=== PATIENT | female | born 1935 | race Caucasian/White ===

== ENCOUNTER 2019-04-03 15:14 | Emergency (ER) | payer MEDICARE, MEDICAID ==
[~2019-04-03] VITALS: Ht 147.3 cm; Wt 52.2 kg
[2019-04-03 15:14] VITALS: BP 128/75
[~2019-04-03 15:14] MED LIST: ALPR2TAB2 PO; ESOM40CA PO; FERR325T28 PO; FLUO20CA36 PO; ROSU5TAB PO; SOLI5TAB2 PO
== END 2019-04-03 17:32 | disposition home or self-care (01) ==
LOC: ER 15:16
DX: S69.91XA Unspecified injury of right wrist, hand and finger(s), initial encounter (principal); K21.9 Gastro-esophageal reflux disease without esophagitis; Z98.890 Other specified postprocedural states; Z88.0 Allergy status to penicillin; W18.39XA Other fall on same level, initial encounter; Y93.89 Activity, other specified; Y92.89 Other specified places as the place of occurrence of the external cause; Y99.8 Other external cause status
CPT/HCPCS: 73110

== ENCOUNTER 2020-01-20 09:55 | Outpatient (CLI) | payer MEDICARE, MEDICAID | END 2020-01-20 23:59 | disposition home or self-care (01) | LOC: MSC 09:55 | PROVIDERS: ATTEND Anesthesiology | DX: M54.16 Radiculopathy, lumbar region (principal); M62.830 Muscle spasm of back; G89.4 Chronic pain syndrome; M79.669 Pain in unspecified lower leg; G47.00 Insomnia, unspecified; F13.20 Sedative, hypnotic or anxiolytic dependence, uncomplicated; Z79.899 Other long term (current) drug therapy ==

== ENCOUNTER → 2020-02-17 | Outpatient (CLI) | payer MEDICARE, MEDICAID | END | disposition home or self-care (01) | LOC: MSC 10:45 | PROVIDERS: ATTEND Anesthesiology | DX: M54.16 Radiculopathy, lumbar region (principal); M62.830 Muscle spasm of back; G89.4 Chronic pain syndrome; M79.662 Pain in left lower leg; M79.661 Pain in right lower leg; G47.00 Insomnia, unspecified; F13.20 Sedative, hypnotic or anxiolytic dependence, uncomplicated ==

== ENCOUNTER → 2020-03-30 | Outpatient (CLI) | payer MEDICARE, MEDICAID | END | disposition home or self-care (01) | LOC: MSC 10:56 | PROVIDERS: ATTEND Anesthesiology | DX: M54.16 Radiculopathy, lumbar region (principal); M62.830 Muscle spasm of back; M40.209 Unspecified kyphosis, site unspecified; G89.4 Chronic pain syndrome; M79.669 Pain in unspecified lower leg; G47.00 Insomnia, unspecified; F13.20 Sedative, hypnotic or anxiolytic dependence, uncomplicated ==

== ENCOUNTER 2020-04-07 10:20 | Outpatient (CLI) | payer MEDICARE, MEDICAID | END 2020-04-07 23:59 | disposition home or self-care (01) | LOC: MSC 10:20 | PROVIDERS: ATTEND Internal Medicine | DX: M19.90 Unspecified osteoarthritis, unspecified site (principal); R51.9 Headache, unspecified; R32 Unspecified urinary incontinence; F41.9 Anxiety disorder, unspecified; F32.9 Major depressive disorder, single episode, unspecified; R42 Dizziness and giddiness; R00.1 Bradycardia, unspecified; M81.0 Age-related osteoporosis without current pathological fracture; E04.9 Nontoxic goiter, unspecified; N20.0 Calculus of kidney; E78.5 Hyperlipidemia, unspecified; F11.20 Opioid dependence, uncomplicated; Z79.899 Other long term (current) drug therapy ==

== ENCOUNTER → 2020-04-27 | Outpatient (CLI) | payer MEDICARE, MEDICAID | END | disposition home or self-care (01) | LOC: MSC 10:00 | PROVIDERS: ATTEND Anesthesiology | DX: M62.830 Muscle spasm of back (principal); M54.16 Radiculopathy, lumbar region; G89.4 Chronic pain syndrome; M79.669 Pain in unspecified lower leg; G47.00 Insomnia, unspecified; F13.20 Sedative, hypnotic or anxiolytic dependence, uncomplicated ==

== ENCOUNTER 2020-05-14 13:20 | Outpatient (CLI) | payer MEDICARE, MEDICAID | END 2020-05-14 23:59 | disposition home or self-care (01) | LOC: MSC 13:20 | PROVIDERS: ATTEND Internal Medicine | DX: M19.90 Unspecified osteoarthritis, unspecified site (principal); F32.9 Major depressive disorder, single episode, unspecified; R51.9 Headache, unspecified; R00.1 Bradycardia, unspecified; R32 Unspecified urinary incontinence; N20.0 Calculus of kidney; M81.0 Age-related osteoporosis without current pathological fracture; F11.20 Opioid dependence, uncomplicated; E04.9 Nontoxic goiter, unspecified; E78.5 Hyperlipidemia, unspecified; F41.9 Anxiety disorder, unspecified; R42 Dizziness and giddiness | CPT/HCPCS: 71045; 73030 ×2; G0463 ==

== ENCOUNTER 2020-05-19 12:56 | Outpatient (CLI) | payer MEDICARE, MEDICAID | END 2020-05-19 23:59 | disposition home or self-care (01) | LOC: MRI 12:56 | PROVIDERS: ATTEND Internal Medicine | DX: Z75.3 Unavailability and inaccessibility of health-care facilities (principal) ==

== ENCOUNTER 2020-06-22 10:30 | Outpatient (CLI) | payer MEDICARE, MEDICAID | END 2020-06-22 23:59 | disposition home or self-care (01) | LOC: MSC 10:30 | PROVIDERS: ATTEND Anesthesiology | DX: M54.16 Radiculopathy, lumbar region (principal); M62.830 Muscle spasm of back; G89.4 Chronic pain syndrome; M79.669 Pain in unspecified lower leg; G47.00 Insomnia, unspecified; F13.20 Sedative, hypnotic or anxiolytic dependence, uncomplicated ==

== ENCOUNTER 2020-07-06 10:04 | Outpatient (CLI) | payer MEDICARE, MEDICAID | END 2020-07-06 23:59 | disposition home or self-care (01) | LOC: MSC 10:04 | PROVIDERS: ATTEND Internal Medicine | DX: M81.0 Age-related osteoporosis without current pathological fracture (principal) | CPT/HCPCS: J0897 ×2; 96372 ==

== ENCOUNTER 2020-08-03 10:38 | Outpatient (CLI) | payer MEDICARE, MEDICAID ==
[2020-08-19] MEDS ORDERED: TOPI50TA24 PO (10:55)
[2020-08-19] MEDS ORDERED: LANS30CA56 PO (10:55)
[2020-08-19] MEDS ORDERED: ALPR1TAB7 PO (10:55)
[2020-08-19] MEDS ORDERED: TROS20TA3 PO (10:55)
[2020-08-19] MEDS ORDERED: ROSU20TA32 PO (10:55)
[2020-08-19] MEDS ORDERED: MIRT7.5T10 PO (10:55)
[2020-08-19] MEDS ORDERED: AMIT10TA6 PO (10:55)
[2020-08-19] MEDS ORDERED: GABA-532 PO (10:55)
== END 2020-08-03 23:59 | disposition home or self-care (01) ==
LOC: MSC 10:38
PROVIDERS: ATTEND Anesthesiology
DX: M75.01 Adhesive capsulitis of right shoulder (principal); M19.011 Primary osteoarthritis, right shoulder; M75.02 Adhesive capsulitis of left shoulder; M19.012 Primary osteoarthritis, left shoulder; G89.4 Chronic pain syndrome; M54.16 Radiculopathy, lumbar region; M62.830 Muscle spasm of back; F13.20 Sedative, hypnotic or anxiolytic dependence, uncomplicated; M17.0 Bilateral primary osteoarthritis of knee
CPT/HCPCS: 96372; Q4177

== ENCOUNTER 2020-08-16 13:06 | Outpatient (CLI) | payer MEDICARE, MEDICAID ==
[2020-08-16 14:58] LABS: BASOPHILS % (AUTO) 0.4 % (0.0-2.0); EOSINOPHILS % (AUTO) 2.8 % (0.0-6.0); HEMATOCRIT 39 % (33-45); HEMOGLOBIN 12.5 g/dL (11.5-14.8); LYMPHOCYTES # (AUTO) 2.3 /CMM (0.8-4.8); LYMPHOCYTES % (AUTO) 30.9 % (20.0-44.0); MEAN CORPUSCULAR HGB CONC 32 g/dl (31.0-36.0); MEAN CORPUSCULAR VOLUME 85 fL (82-100); MONOCYTES # (AUTO) 0.7 /CMM (0.1-1.30); MONOCYTES % (AUTO) 9.1 % (2.0-12.0); NEUTROPHILS # (AUTO) 4.2 /CMM (1.8-8.9); NEUTROPHILS % (AUTO) 56.8 % (43.0-81.0); PLATELET COUNT (AUTO) 245 /CMM (150-450); RED BLOOD CELL COUNT(AUTO) 4.57 MIL/uL (4.0-5.2); WHITE BLOOD COUNT (AUTO) 7.4 K/uL (4.3-11.0)
[2020-08-16 15:19] LABS: ALBUMIN 3.4 g/dL (3.4-5.0); BILIRUBIN,TOTAL 0.5 mg/dL (0.2-1.0); CREATININE 0.7 mg/dL (0.6-1.3); MAGNESIUM 2.1 mg/dL (1.8-2.4); PHOSPHORUS 3.1 mg/dL (2.5-4.9); POTASSIUM 3.2 mmol/L (3.5-5.1)
[2020-08-16 15:21] LABS: BILIRUBIN,URINE NEGATIVE (NEGATIVE); COLOR,URINE YELLOW (YELLOW); LEUKOCYTE ESTERASE ,URINE MODERATE (NEGATIVE); NITRITE, URINE NEGATIVE (NEGATIVE); PH,URINE 5.5 (5.0-8.0); PROTEIN,URINE NEGATIVE (NEGATIVE); UGLUCOSE NEGATIVE (NEGATIVE); UROBILINOGEN,URINE 0.2 EU/dL (0.2)
[2020-08-16 15:42] LABS: BACTERIA,URINE RARE /HPF (None Seen); SQUAMOUS EPITHELIAL CELL,UR 0-2 /HPF (None Seen)
[2020-08-16 16:02] LABS: THYROID STIMULATING HORMONE 0.364 uIU/mL (0.358-3.74)
[2020-08-19] MEDS ORDERED: LANS30CA56 PO (10:55)
[2020-08-19] MEDS ORDERED: TROS20TA3 PO (10:55)
[2020-08-19] MEDS ORDERED: ROSU20TA32 PO (10:55)
[2020-08-19] MEDS ORDERED: MIRT7.5T10 PO (10:55)
[2020-08-19] MEDS ORDERED: ALPR1TAB7 PO (10:55)
[2020-08-19] MEDS ORDERED: TOPI50TA24 PO (10:55)
[2020-08-19] MEDS ORDERED: GABA-532 PO (10:55)
[2020-08-19] MEDS ORDERED: AMIT10TA6 PO (10:55)
== END 2020-08-16 23:49 | disposition home or self-care (01) ==
LOC: MSC 13:06
PROVIDERS: ATTEND Internal Medicine
DX: R10.13 Epigastric pain (principal); R32 Unspecified urinary incontinence; M19.90 Unspecified osteoarthritis, unspecified site; F32.9 Major depressive disorder, single episode, unspecified; R51.9 Headache, unspecified; R00.1 Bradycardia, unspecified; F41.9 Anxiety disorder, unspecified; Z87.442 Personal history of urinary calculi; M81.0 Age-related osteoporosis without current pathological fracture; E78.5 Hyperlipidemia, unspecified; F11.20 Opioid dependence, uncomplicated; Z79.899 Other long term (current) drug therapy; Z88.6 Allergy status to analgesic agent; Z88.5 Allergy status to narcotic agent
CPT/HCPCS: 36415; 80053; 80061; 81001; 82553; 83735; 84100; 84443; 85025; 87086; G0463

== ENCOUNTER 2020-08-18 12:35 | Outpatient (CLI) | payer MEDICARE, MEDICAID ==
[2020-08-19] MEDS ORDERED: AMIT10TA6 PO (10:55)
[2020-08-19] MEDS ORDERED: TROS20TA3 PO (10:55)
[2020-08-19] MEDS ORDERED: GABA-532 PO (10:55)
[2020-08-19] MEDS ORDERED: MIRT7.5T10 PO (10:55)
[2020-08-19] MEDS ORDERED: ALPR1TAB7 PO (10:55)
[2020-08-19] MEDS ORDERED: LANS30CA56 PO (10:55)
[2020-08-19] MEDS ORDERED: TOPI50TA24 PO (10:55)
[2020-08-19] MEDS ORDERED: ROSU20TA32 PO (10:55)
== END 2020-08-18 23:59 | disposition home or self-care (01) ==
LOC: RAD 12:35
PROVIDERS: ATTEND Internal Medicine
DX: K80.20 Calculus of gallbladder without cholecystitis without obstruction (principal); K44.9 Diaphragmatic hernia without obstruction or gangrene; I51.7 Cardiomegaly; K76.89 Other specified diseases of liver; K86.2 Cyst of pancreas

== ENCOUNTER 2020-08-23 15:00 | Outpatient (CLI) | payer MEDICARE, OTHER ==
[~2020-08-23 15:00] MED LIST changes: +ALPR1TAB7 PO; -ALPR2TAB2 PO; +AMIT10TA6 PO; +GABA-532 PO; +LANS30CA56 PO; +MIRT7.5T10 PO; +ROSU20TA32 PO; -ROSU5TAB PO; -SOLI5TAB2 PO; +TOPI50TA24 PO; +TROS20TA3 PO
== END 2020-08-23 23:59 | disposition home or self-care (01) ==
LOC: MSC 15:00
PROVIDERS: ATTEND Internal Medicine
DX: Z09 Encounter for follow-up examination after completed treatment for conditions other than malignant neoplasm (principal); R10.9 Unspecified abdominal pain; M19.90 Unspecified osteoarthritis, unspecified site; F32.9 Major depressive disorder, single episode, unspecified; R51.9 Headache, unspecified; R00.1 Bradycardia, unspecified; R32 Unspecified urinary incontinence; Z87.442 Personal history of urinary calculi; F41.9 Anxiety disorder, unspecified; M81.0 Age-related osteoporosis without current pathological fracture; F11.20 Opioid dependence, uncomplicated; E04.9 Nontoxic goiter, unspecified; E78.5 Hyperlipidemia, unspecified; R42 Dizziness and giddiness; Z79.899 Other long term (current) drug therapy; Z88.6 Allergy status to analgesic agent; Z88.5 Allergy status to narcotic agent

== ENCOUNTER 2020-08-24 10:24 | Outpatient (CLI) | payer MEDICARE, OTHER ==
[2020-08-24 10:47] LABS: BASOPHILS % (AUTO) 0.4 % (0.0-2.0); EOSINOPHILS % (AUTO) 1.6 % (0.0-6.0); HEMATOCRIT 36 % (33-45); HEMOGLOBIN 11.6 g/dL (11.5-14.8); LYMPHOCYTES % (AUTO) 17.2 % (20.0-44.0); MEAN CORPUSCULAR HGB CONC 32 g/dl (31.0-36.0); MEAN CORPUSCULAR VOLUME 83 fL (82-100); MONOCYTES # (AUTO) 1.2 /CMM (0.1-1.30); NEUTROPHILS # (AUTO) 8.3 /CMM (1.8-8.9); NEUTROPHILS % (AUTO) 70.8 % (43.0-81.0); PLATELET COUNT (AUTO) 595 /CMM (150-450); RED BLOOD CELL COUNT(AUTO) 4.34 MIL/uL (4.0-5.2); WHITE BLOOD COUNT (AUTO) 11.7 K/uL (4.3-11.0)
[2020-08-24 11:41] LABS: ALBUMIN 2.8 g/dL (3.4-5.0); BILIRUBIN,TOTAL 0.4 mg/dL (0.2-1.0); CALCIUM, SERUM 9.2 mg/dL (8.5-10.1); CREATININE 0.6 mg/dL (0.6-1.3); MAGNESIUM 1.8 mg/dL (1.8-2.4); PHOSPHORUS 2.8 mg/dL (2.5-4.9); POTASSIUM 2.9 mmol/L (3.5-5.1)
== END 2020-08-24 23:59 | disposition home or self-care (01) ==
LOC: LAB 10:24
PROVIDERS: ATTEND Internal Medicine
DX: K81.9 Cholecystitis, unspecified (principal)
CPT/HCPCS: 36415; 80053-TC; 83735-TC; 84100-TC; 85025-TC; 85730-TC

== ENCOUNTER 2020-08-24 10:30 | Outpatient (CLI) | payer MEDICARE, OTHER ==
[~2020-08-24 10:30] MED LIST changes: +ALPR2TAB2 PO; +ROSU5TAB PO; +SOLI5TAB2 PO
== END 2020-08-24 23:59 | disposition home or self-care (01) ==
LOC: MSC 10:30
PROVIDERS: ATTEND Anesthesiology
DX: M75.02 Adhesive capsulitis of left shoulder (principal); M19.012 Primary osteoarthritis, left shoulder; G89.4 Chronic pain syndrome; G47.00 Insomnia, unspecified; F13.20 Sedative, hypnotic or anxiolytic dependence, uncomplicated
CPT/HCPCS: 96372; Q4177

== ENCOUNTER 2020-09-03 13:05 | Outpatient (CLI) | payer MEDICARE, OTHER ==
[~2020-09-03 13:05] MED LIST changes: -ALPR2TAB2 PO; -ROSU5TAB PO; -SOLI5TAB2 PO
[2020-09-03 14:06] LABS: BASOPHILS % (AUTO) 0.6 % (0.0-2.0); EOSINOPHILS % (AUTO) 2.2 % (0.0-6.0); HEMATOCRIT 37 % (33-45); HEMOGLOBIN 11.9 g/dL (11.5-14.8); LYMPHOCYTES # (AUTO) 2.7 /CMM (0.8-4.8); LYMPHOCYTES % (AUTO) 36.2 % (20.0-44.0); MEAN CORPUSCULAR HGB CONC 32 g/dl (31.0-36.0); MEAN CORPUSCULAR VOLUME 84 fL (82-100); MONOCYTES # (AUTO) 0.5 /CMM (0.1-1.30); MONOCYTES % (AUTO) 6.6 % (2.0-12.0); NEUTROPHILS # (AUTO) 4.1 /CMM (1.8-8.9); NEUTROPHILS % (AUTO) 54.4 % (43.0-81.0); PLATELET COUNT (AUTO) 476 /CMM (150-450); RED BLOOD CELL COUNT(AUTO) 4.39 MIL/uL (4.0-5.2); WHITE BLOOD COUNT (AUTO) 7.6 K/uL (4.3-11.0)
[2020-09-03 14:24] LABS: ALBUMIN 3.3 g/dL (3.4-5.0); BILIRUBIN,TOTAL 0.2 mg/dL (0.2-1.0); CREATININE 0.7 mg/dL (0.6-1.3); MAGNESIUM 2.1 mg/dL (1.8-2.4); PHOSPHORUS 3.2 mg/dL (2.5-4.9); POTASSIUM 3.9 mmol/L (3.5-5.1)
[2020-09-03 14:31] LABS: BILIRUBIN,URINE NEGATIVE (NEGATIVE); COLOR,URINE YELLOW (YELLOW); LEUKOCYTE ESTERASE ,URINE SMALL (NEGATIVE); NITRITE, URINE NEGATIVE (NEGATIVE); PROTEIN,URINE NEGATIVE (NEGATIVE); UGLUCOSE NEGATIVE (NEGATIVE); UROBILINOGEN,URINE 0.2 EU/dL (0.2)
[2020-09-03 14:55] LABS: BACTERIA,URINE 1+ /HPF (None Seen); SQUAMOUS EPITHELIAL CELL,UR 0-2 /HPF (None Seen)
== END 2020-09-03 23:59 | disposition home or self-care (01) ==
LOC: MSC 13:05
PROVIDERS: ATTEND Internal Medicine
DX: Z01.818 Encounter for other preprocedural examination (principal); R10.9 Unspecified abdominal pain; M19.90 Unspecified osteoarthritis, unspecified site; F41.9 Anxiety disorder, unspecified; F32.9 Major depressive disorder, single episode, unspecified; R51.9 Headache, unspecified; R00.1 Bradycardia, unspecified; R32 Unspecified urinary incontinence; N20.0 Calculus of kidney; M81.0 Age-related osteoporosis without current pathological fracture; F11.20 Opioid dependence, uncomplicated; E04.9 Nontoxic goiter, unspecified; E78.5 Hyperlipidemia, unspecified; R42 Dizziness and giddiness; Z79.899 Other long term (current) drug therapy
CPT/HCPCS: 36415; 80053; 81001; 83735; 84100; 85025; 85730; 87086; 93005; G0463

== ENCOUNTER 2020-10-05 10:50 | Outpatient (CLI) | payer MEDICARE, OTHER | END 2020-10-05 23:59 | disposition home or self-care (01) | LOC: MSC 10:50 | PROVIDERS: ATTEND Anesthesiology | DX: M19.012 Primary osteoarthritis, left shoulder (principal); M19.011 Primary osteoarthritis, right shoulder; M75.02 Adhesive capsulitis of left shoulder; M75.01 Adhesive capsulitis of right shoulder; M54.16 Radiculopathy, lumbar region; M62.830 Muscle spasm of back; G89.4 Chronic pain syndrome; M17.0 Bilateral primary osteoarthritis of knee; M76.32 Iliotibial band syndrome, left leg; M76.31 Iliotibial band syndrome, right leg; G47.00 Insomnia, unspecified; F13.20 Sedative, hypnotic or anxiolytic dependence, uncomplicated; Z79.899 Other long term (current) drug therapy ==

== ENCOUNTER → 2020-10-26 | Outpatient (CLI) | payer MEDICARE, OTHER | END | disposition home or self-care (01) | LOC: MSC 11:00 | PROVIDERS: ATTEND Anesthesiology | DX: M54.16 Radiculopathy, lumbar region (principal); M62.830 Muscle spasm of back; G89.4 Chronic pain syndrome; M17.0 Bilateral primary osteoarthritis of knee; M19.012 Primary osteoarthritis, left shoulder; M19.011 Primary osteoarthritis, right shoulder; M75.02 Adhesive capsulitis of left shoulder; M75.01 Adhesive capsulitis of right shoulder; M76.32 Iliotibial band syndrome, left leg; M76.31 Iliotibial band syndrome, right leg; G47.00 Insomnia, unspecified; F13.20 Sedative, hypnotic or anxiolytic dependence, uncomplicated; Z79.1 Long term (current) use of non-steroidal anti-inflammatories (NSAID); Z79.899 Other long term (current) drug therapy ==

== ENCOUNTER 2020-11-30 14:00 | Outpatient (CLI) | payer MEDICARE, OTHER | END 2020-11-30 23:59 | disposition home or self-care (01) | LOC: MSC 14:00 | PROVIDERS: ATTEND Anesthesiology | DX: M54.16 Radiculopathy, lumbar region (principal); M62.830 Muscle spasm of back; G89.4 Chronic pain syndrome; M17.0 Bilateral primary osteoarthritis of knee; M19.012 Primary osteoarthritis, left shoulder; M19.011 Primary osteoarthritis, right shoulder; M75.02 Adhesive capsulitis of left shoulder; M75.01 Adhesive capsulitis of right shoulder; M76.32 Iliotibial band syndrome, left leg; M76.31 Iliotibial band syndrome, right leg; F13.20 Sedative, hypnotic or anxiolytic dependence, uncomplicated; Z79.891 Long term (current) use of opiate analgesic; Z79.1 Long term (current) use of non-steroidal anti-inflammatories (NSAID) ==

== ENCOUNTER 2020-12-16 11:17 | Outpatient (CLI) | payer MEDICARE, OTHER ==
[2020-12-16 12:41] LABS: BASOPHILS % (AUTO) 0.3 % (0.0-2.0); EOSINOPHILS % (AUTO) 2.2 % (0.0-6.0); HEMATOCRIT 41 % (33-45); HEMOGLOBIN 13.2 g/dL (11.5-14.8); LYMPHOCYTES # (AUTO) 2.4 /CMM (0.8-4.8); LYMPHOCYTES % (AUTO) 32.3 % (20.0-44.0); MEAN CORPUSCULAR HGB CONC 32 g/dl (31.0-36.0); MEAN CORPUSCULAR VOLUME 85 fL (82-100); MONOCYTES # (AUTO) 0.5 /CMM (0.1-1.30); MONOCYTES % (AUTO) 6.9 % (2.0-12.0); NEUTROPHILS # (AUTO) 4.4 /CMM (1.8-8.9); NEUTROPHILS % (AUTO) 58.3 % (43.0-81.0); PLATELET COUNT (AUTO) 209 /CMM (150-450); RED BLOOD CELL COUNT(AUTO) 4.78 MIL/uL (4.0-5.2); WHITE BLOOD COUNT (AUTO) 7.5 K/uL (4.3-11.0)
[2020-12-16 12:52] LABS: ALANINE AMINOTRANSFERASE 30 U/L (12-78); ALBUMIN 3.9 g/dL (3.4-5.0); ALKALINE PHOSPHATASE 73 U/L (46-116); ASPARTATE AMINOTRANSFERASE 27 U/L (15-37); BILIRUBIN,TOTAL 0.3 mg/dL (0.2-1.0); CARBON DIOXIDE 24 mmol/L (21-32); CHLORIDE 105 mmol/L (98-107); CREATININE 0.6 mg/dL (0.6-1.3); GLUCOSE 99 mg/dL (74-106); MAGNESIUM 2.1 mg/dL (1.8-2.4); PHOSPHORUS 3.4 mg/dL (2.5-4.9); POTASSIUM 4.2 mmol/L (3.5-5.1); SODIUM SERUM 140 mmol/L (136-145); TOTAL PROTEIN, SERUM 7.1 g/dL (6.4-8.2); UREA NITROGEN, BLOOD 22 mg/dL (7-18)
[2020-12-16 13:03] LABS: CHOLESTEROL 164 mg/dL (<200); HDL CHOLESTEROL 60 mg/dL (40-60); LDL 78 mg/dL (0-99); THYROID STIMULATING HORMONE 0.148 uIU/mL (0.358-3.74); TRIGLYCERIDES 187 mg/dL (30-150)
[2020-12-16 13:29] LABS: C-REACTIVE PROTEIN < 0.2 mg/dL (0.0-0.9)
[2020-12-20 21:06] LABS: CCP IgG/IgA AB 2 units (0-19)
== END 2020-12-16 23:59 | disposition home or self-care (01) ==
LOC: MSC 11:17
PROVIDERS: ATTEND Internal Medicine
DX: M19.90 Unspecified osteoarthritis, unspecified site (principal); R10.9 Unspecified abdominal pain; F41.9 Anxiety disorder, unspecified; F32.9 Major depressive disorder, single episode, unspecified; R51.9 Headache, unspecified; R00.1 Bradycardia, unspecified; R32 Unspecified urinary incontinence; M81.0 Age-related osteoporosis without current pathological fracture; F11.20 Opioid dependence, uncomplicated; E04.9 Nontoxic goiter, unspecified; E78.5 Hyperlipidemia, unspecified; R42 Dizziness and giddiness; Z79.899 Other long term (current) drug therapy
CPT/HCPCS: 36415; 80053; 80061; 83036; 83735; 84100; 84443; 85025; 85652; 86038; 86140; 86200; 86431; G0463

== ENCOUNTER 2021-01-04 11:00 | Outpatient (CLI) | payer MEDICARE, OTHER | END 2021-01-04 23:59 | disposition home or self-care (01) | LOC: MSC 11:00 | PROVIDERS: ATTEND Anesthesiology | DX: G89.4 Chronic pain syndrome (principal); M54.16 Radiculopathy, lumbar region; M62.830 Muscle spasm of back; M17.0 Bilateral primary osteoarthritis of knee; M19.012 Primary osteoarthritis, left shoulder; M19.011 Primary osteoarthritis, right shoulder; M75.02 Adhesive capsulitis of left shoulder; M75.01 Adhesive capsulitis of right shoulder; M76.32 Iliotibial band syndrome, left leg; M76.31 Iliotibial band syndrome, right leg; F13.20 Sedative, hypnotic or anxiolytic dependence, uncomplicated; G47.00 Insomnia, unspecified ==

== ENCOUNTER 2021-01-06 11:29 | Outpatient (CLI) | payer MEDICARE, OTHER ==
[2021-01-06 13:33] LABS: ALANINE AMINOTRANSFERASE 27 U/L (12-78); ALBUMIN 3.7 g/dL (3.4-5.0); ALKALINE PHOSPHATASE 62 U/L (46-116); ASPARTATE AMINOTRANSFERASE 27 U/L (15-37); BILIRUBIN,TOTAL 0.3 mg/dL (0.2-1.0); CALCIUM, SERUM 9.2 mg/dL (8.5-10.1); CARBON DIOXIDE 25 mmol/L (21-32); CHLORIDE 106 mmol/L (98-107); CREATININE 0.5 mg/dL (0.6-1.3); GLUCOSE 91 mg/dL (74-106); POTASSIUM 4.3 mmol/L (3.5-5.1); SODIUM SERUM 141 mmol/L (136-145); TOTAL PROTEIN, SERUM 6.9 g/dL (6.4-8.2); UREA NITROGEN, BLOOD 22 mg/dL (7-18)
[2021-01-06 13:35] LABS: CHOLESTEROL 152 mg/dL (<200); CREATINE KINASE, TOTAL 99 U/L (26-192); HDL CHOLESTEROL 54 mg/dL (40-60); LDL 73 mg/dL (0-99); TRIGLYCERIDES 130 mg/dL (30-150)
== END 2021-01-06 23:59 | disposition home or self-care (01) ==
LOC: MSC 11:29
PROVIDERS: ATTEND Internal Medicine
DX: M19.90 Unspecified osteoarthritis, unspecified site (principal); M81.0 Age-related osteoporosis without current pathological fracture; R10.9 Unspecified abdominal pain; F41.9 Anxiety disorder, unspecified; F32.9 Major depressive disorder, single episode, unspecified; R51.9 Headache, unspecified; R00.1 Bradycardia, unspecified; R32 Unspecified urinary incontinence; F11.20 Opioid dependence, uncomplicated; E78.5 Hyperlipidemia, unspecified; R42 Dizziness and giddiness
CPT/HCPCS: J0897 ×7; 36415; 80053-TC; 80061-TC; 82550-TC; 96372

== ENCOUNTER → 2021-01-10 | Outpatient (CLI) | payer MEDICARE, OTHER | END | disposition home or self-care (01) | LOC: MSC 15:00 | PROVIDERS: ATTEND Internal Medicine | DX: E78.5 Hyperlipidemia, unspecified (principal); M19.90 Unspecified osteoarthritis, unspecified site; Z90.49 Acquired absence of other specified parts of digestive tract; F41.9 Anxiety disorder, unspecified; F32.9 Major depressive disorder, single episode, unspecified; R51.9 Headache, unspecified; R00.1 Bradycardia, unspecified; R32 Unspecified urinary incontinence; N20.0 Calculus of kidney; M81.0 Age-related osteoporosis without current pathological fracture; F11.20 Opioid dependence, uncomplicated; E04.9 Nontoxic goiter, unspecified; R42 Dizziness and giddiness; Z79.899 Other long term (current) drug therapy ==

== ENCOUNTER 2021-02-08 11:00 | Outpatient (CLI) | payer MEDICARE, OTHER | END 2021-02-08 23:59 | disposition home or self-care (01) | LOC: MSC 11:00 | PROVIDERS: ATTEND Anesthesiology | DX: G89.4 Chronic pain syndrome (principal); M54.16 Radiculopathy, lumbar region; M62.830 Muscle spasm of back; M19.012 Primary osteoarthritis, left shoulder; M19.011 Primary osteoarthritis, right shoulder; M75.02 Adhesive capsulitis of left shoulder; M75.01 Adhesive capsulitis of right shoulder; M17.0 Bilateral primary osteoarthritis of knee; M76.32 Iliotibial band syndrome, left leg; M76.31 Iliotibial band syndrome, right leg; G47.00 Insomnia, unspecified; F13.20 Sedative, hypnotic or anxiolytic dependence, uncomplicated ==

== ENCOUNTER 2021-02-10 10:43 | Outpatient (CLI) | payer MEDICARE, OTHER | END 2021-02-10 23:59 | disposition home or self-care (01) | LOC: MSC 10:43 | PROVIDERS: ATTEND Internal Medicine | DX: R42 Dizziness and giddiness (principal); F41.8 Other specified anxiety disorders; E78.5 Hyperlipidemia, unspecified; M19.90 Unspecified osteoarthritis, unspecified site; R51.9 Headache, unspecified; R00.1 Bradycardia, unspecified; R32 Unspecified urinary incontinence; N20.0 Calculus of kidney; M81.0 Age-related osteoporosis without current pathological fracture; F11.20 Opioid dependence, uncomplicated; E04.9 Nontoxic goiter, unspecified; Z79.899 Other long term (current) drug therapy ==

== ENCOUNTER 2021-02-15 10:58 | Outpatient (CLI) | payer MEDICARE, OTHER | END 2021-02-15 23:59 | disposition home or self-care (01) | LOC: CT 10:58 | PROVIDERS: ATTEND Internal Medicine | DX: I67.82 Cerebral ischemia (principal) | CPT/HCPCS: 70450-TC ==

== ENCOUNTER → 2021-02-22 | Outpatient (CLI) | payer MEDICARE, OTHER | END | disposition home or self-care (01) | LOC: MSC 11:00 | PROVIDERS: ATTEND Anesthesiology | DX: M54.16 Radiculopathy, lumbar region (principal); M62.830 Muscle spasm of back; F13.20 Sedative, hypnotic or anxiolytic dependence, uncomplicated; M17.0 Bilateral primary osteoarthritis of knee; G89.4 Chronic pain syndrome; M19.012 Primary osteoarthritis, left shoulder; M19.011 Primary osteoarthritis, right shoulder; M75.02 Adhesive capsulitis of left shoulder; M75.01 Adhesive capsulitis of right shoulder; M76.32 Iliotibial band syndrome, left leg; M76.31 Iliotibial band syndrome, right leg; G47.00 Insomnia, unspecified ==

== ENCOUNTER → 2021-02-25 | Outpatient (CLI) | payer MEDICARE, OTHER | END | disposition home or self-care (01) | LOC: MSC 14:00 | PROVIDERS: ATTEND Internal Medicine | DX: R42 Dizziness and giddiness (principal); E78.5 Hyperlipidemia, unspecified; M19.90 Unspecified osteoarthritis, unspecified site; R10.9 Unspecified abdominal pain; F41.9 Anxiety disorder, unspecified; F32.9 Major depressive disorder, single episode, unspecified; R51.9 Headache, unspecified; R00.1 Bradycardia, unspecified; R32 Unspecified urinary incontinence; N20.0 Calculus of kidney; M81.0 Age-related osteoporosis without current pathological fracture; F11.20 Opioid dependence, uncomplicated; E04.9 Nontoxic goiter, unspecified; Z79.899 Other long term (current) drug therapy ==

== ENCOUNTER 2021-03-01 10:48 | Outpatient (CLI) | payer MEDICARE, OTHER ==
[2021-03-01 11:35] LABS: CREATININE 0.8 mg/dL (0.6-1.3)
== END 2021-03-01 23:59 | disposition home or self-care (01) ==
LOC: LAB 10:48
PROVIDERS: ATTEND Internal Medicine
DX: R51.9 Headache, unspecified (principal)
CPT/HCPCS: 36415; 82565-TC; 84520-TC

== ENCOUNTER 2021-03-08 10:59 | Outpatient (CLI) | payer MEDICARE, OTHER ==
[2021-03-08] MEDS ORDERED: GADOTERATE MEGLUMINE 10 MMOL/20 ML VIAL IV ONE (11:00)
== END 2021-03-08 23:59 | disposition home or self-care (01) ==
LOC: MRI 10:59
PROVIDERS: ATTEND Internal Medicine
DX: R90.82 White matter disease, unspecified (principal)
CPT/HCPCS: 70553; A9575

== ENCOUNTER 2021-03-17 11:04 | Outpatient (CLI) | payer MEDICARE, OTHER | END 2021-03-17 23:59 | disposition home or self-care (01) | LOC: MSC 11:04 | PROVIDERS: ATTEND Internal Medicine | DX: R42 Dizziness and giddiness (principal); E78.5 Hyperlipidemia, unspecified; M19.90 Unspecified osteoarthritis, unspecified site; F11.20 Opioid dependence, uncomplicated; G47.00 Insomnia, unspecified; F41.9 Anxiety disorder, unspecified; F32.9 Major depressive disorder, single episode, unspecified; R51.9 Headache, unspecified; R00.1 Bradycardia, unspecified; R32 Unspecified urinary incontinence; N20.0 Calculus of kidney; M81.0 Age-related osteoporosis without current pathological fracture; E04.9 Nontoxic goiter, unspecified; Z79.899 Other long term (current) drug therapy ==

== ENCOUNTER 2021-04-12 11:00 | Outpatient (CLI) | payer MEDICARE, OTHER | END 2021-04-12 23:59 | disposition home or self-care (01) | LOC: MSC 11:00 | PROVIDERS: ATTEND Anesthesiology | DX: M54.16 Radiculopathy, lumbar region (principal); M62.830 Muscle spasm of back; G89.4 Chronic pain syndrome; F13.20 Sedative, hypnotic or anxiolytic dependence, uncomplicated; M17.0 Bilateral primary osteoarthritis of knee; M19.012 Primary osteoarthritis, left shoulder; M19.011 Primary osteoarthritis, right shoulder; M75.02 Adhesive capsulitis of left shoulder; M75.01 Adhesive capsulitis of right shoulder; M76.32 Iliotibial band syndrome, left leg; M76.31 Iliotibial band syndrome, right leg; G47.00 Insomnia, unspecified ==

== ENCOUNTER 2021-05-05 09:21 | Outpatient (CLI) | payer MEDICARE, OTHER | END 2021-05-05 23:59 | disposition home or self-care (01) | LOC: MSC 09:21 | PROVIDERS: ATTEND Internal Medicine | DX: M19.90 Unspecified osteoarthritis, unspecified site (principal); F11.20 Opioid dependence, uncomplicated; R10.9 Unspecified abdominal pain; Z87.19 Personal history of other diseases of the digestive system; E78.5 Hyperlipidemia, unspecified; G47.00 Insomnia, unspecified; F41.9 Anxiety disorder, unspecified; F32.9 Major depressive disorder, single episode, unspecified; R00.1 Bradycardia, unspecified; R32 Unspecified urinary incontinence; N20.0 Calculus of kidney; M81.0 Age-related osteoporosis without current pathological fracture; E04.9 Nontoxic goiter, unspecified; R42 Dizziness and giddiness; Z79.899 Other long term (current) drug therapy ==

== ENCOUNTER 2021-05-10 11:05 | Outpatient (CLI) | payer MEDICARE, OTHER | END 2021-05-10 23:59 | disposition home or self-care (01) | LOC: MSC 11:05 | PROVIDERS: ATTEND Anesthesiology | DX: M54.16 Radiculopathy, lumbar region (principal); M62.830 Muscle spasm of back; G89.4 Chronic pain syndrome; M54.2 Cervicalgia; M17.0 Bilateral primary osteoarthritis of knee; M19.012 Primary osteoarthritis, left shoulder; M19.011 Primary osteoarthritis, right shoulder; M75.02 Adhesive capsulitis of left shoulder; M75.01 Adhesive capsulitis of right shoulder; M76.32 Iliotibial band syndrome, left leg; M76.31 Iliotibial band syndrome, right leg; G47.00 Insomnia, unspecified; F13.20 Sedative, hypnotic or anxiolytic dependence, uncomplicated ==

== ENCOUNTER 2021-05-12 10:24 | Outpatient (CLI) | payer MEDICARE, OTHER ==
[2021-05-12 12:27] LABS: ALBUMIN 3.7 g/dL (3.4-5.0); BILIRUBIN,TOTAL 0.5 mg/dL (0.2-1.0); CALCIUM, SERUM 8.9 mg/dL (8.5-10.1); CREATININE 0.7 mg/dL (0.6-1.3); POTASSIUM 4.7 mmol/L (3.5-5.1)
== END 2021-05-12 23:59 | disposition home or self-care (01) ==
LOC: MSC 10:24
PROVIDERS: ATTEND Internal Medicine
DX: G89.4 Chronic pain syndrome (principal); M19.90 Unspecified osteoarthritis, unspecified site; I10 Essential (primary) hypertension; R10.9 Unspecified abdominal pain; Z87.19 Personal history of other diseases of the digestive system; R42 Dizziness and giddiness; E78.5 Hyperlipidemia, unspecified; G47.00 Insomnia, unspecified; F41.9 Anxiety disorder, unspecified; F32.9 Major depressive disorder, single episode, unspecified; R00.1 Bradycardia, unspecified; R32 Unspecified urinary incontinence; N20.0 Calculus of kidney; M81.0 Age-related osteoporosis without current pathological fracture; E04.9 Nontoxic goiter, unspecified; F11.20 Opioid dependence, uncomplicated; Z79.899 Other long term (current) drug therapy
CPT/HCPCS: 36415; 80053; 80061; 82550; G0463

== ENCOUNTER 2021-06-07 11:02 | Outpatient (CLI) | payer MEDICARE, OTHER | END 2021-06-07 23:59 | disposition home or self-care (01) | LOC: MSC 11:02 | PROVIDERS: ATTEND Anesthesiology | DX: M54.16 Radiculopathy, lumbar region (principal); M62.830 Muscle spasm of back; G89.4 Chronic pain syndrome; M75.01 Adhesive capsulitis of right shoulder; M75.02 Adhesive capsulitis of left shoulder; M19.012 Primary osteoarthritis, left shoulder; M19.011 Primary osteoarthritis, right shoulder; F13.20 Sedative, hypnotic or anxiolytic dependence, uncomplicated; M17.0 Bilateral primary osteoarthritis of knee; M76.32 Iliotibial band syndrome, left leg; M76.31 Iliotibial band syndrome, right leg; G47.00 Insomnia, unspecified ==

== ENCOUNTER 2021-06-21 09:30 | Outpatient (CLI) | payer MEDICARE, OTHER | END 2021-06-21 23:59 | disposition home or self-care (01) | LOC: MSC 09:30 | PROVIDERS: ATTEND Internal Medicine | DX: R51.9 Headache, unspecified (principal); W19.XXXA Unspecified fall, initial encounter; F41.8 Other specified anxiety disorders; M19.90 Unspecified osteoarthritis, unspecified site; F11.20 Opioid dependence, uncomplicated; R10.9 Unspecified abdominal pain; Z87.19 Personal history of other diseases of the digestive system; E78.5 Hyperlipidemia, unspecified; G47.00 Insomnia, unspecified; R00.1 Bradycardia, unspecified; R32 Unspecified urinary incontinence; N20.0 Calculus of kidney; M81.0 Age-related osteoporosis without current pathological fracture; E04.9 Nontoxic goiter, unspecified; Z79.899 Other long term (current) drug therapy ==

== ENCOUNTER 2021-06-21 14:08 | Outpatient (CLI) | payer MEDICARE, OTHER | END 2021-06-21 23:59 | disposition home or self-care (01) | LOC: MSC 14:08 | PROVIDERS: ATTEND Internal Medicine | DX: M81.0 Age-related osteoporosis without current pathological fracture (principal) | CPT/HCPCS: J0897 ×2; 96372 ==

== ENCOUNTER 2021-06-23 11:05 | Outpatient (CLI) | payer MEDICARE, OTHER | END 2021-06-23 23:59 | disposition home or self-care (01) | LOC: CT 11:05 | PROVIDERS: ATTEND Internal Medicine | DX: S09.90XA Unspecified injury of head, initial encounter (principal); I65.23 Occlusion and stenosis of bilateral carotid arteries; X58.XXXA Exposure to other specified factors, initial encounter; Y93.89 Activity, other specified; Y92.89 Other specified places as the place of occurrence of the external cause; Y99.8 Other external cause status | CPT/HCPCS: 70450-TC ==

== ENCOUNTER 2021-06-28 11:33 | Outpatient (CLI) | payer MEDICARE, OTHER | END 2021-06-28 23:59 | disposition home or self-care (01) | LOC: MSC 11:33 | PROVIDERS: ATTEND Internal Medicine | DX: R51.9 Headache, unspecified (principal); Z91.81 History of falling; F41.8 Other specified anxiety disorders; M19.90 Unspecified osteoarthritis, unspecified site; F11.20 Opioid dependence, uncomplicated; R10.9 Unspecified abdominal pain; Z87.19 Personal history of other diseases of the digestive system; E78.5 Hyperlipidemia, unspecified; G47.00 Insomnia, unspecified; R00.1 Bradycardia, unspecified; R32 Unspecified urinary incontinence; N20.0 Calculus of kidney; M81.0 Age-related osteoporosis without current pathological fracture; E04.9 Nontoxic goiter, unspecified; Z79.899 Other long term (current) drug therapy ==

== ENCOUNTER 2021-07-19 11:25 | Outpatient (CLI) | payer MEDICARE, OTHER | END 2021-07-19 23:59 | disposition home or self-care (01) | LOC: MSC 11:25 | PROVIDERS: ATTEND Anesthesiology | DX: G89.4 Chronic pain syndrome (principal); M54.16 Radiculopathy, lumbar region; M62.830 Muscle spasm of back; M17.0 Bilateral primary osteoarthritis of knee; M19.012 Primary osteoarthritis, left shoulder; M19.011 Primary osteoarthritis, right shoulder; M75.02 Adhesive capsulitis of left shoulder; M75.01 Adhesive capsulitis of right shoulder; M76.32 Iliotibial band syndrome, left leg; M76.31 Iliotibial band syndrome, right leg; F13.20 Sedative, hypnotic or anxiolytic dependence, uncomplicated; G47.00 Insomnia, unspecified; Z79.891 Long term (current) use of opiate analgesic; Z79.1 Long term (current) use of non-steroidal anti-inflammatories (NSAID) ==

== ENCOUNTER 2021-07-28 11:35 | Outpatient (CLI) | payer MEDICARE, OTHER ==
[2021-07-28 12:37] LABS: BASOPHILS % (AUTO) 0.4 % (0.0-2.0); EOSINOPHILS % (AUTO) 1.3 % (0.0-6.0); HEMATOCRIT 39 % (33-45); HEMOGLOBIN 12.5 g/dL (11.5-14.8); LYMPHOCYTES # (AUTO) 2.3 K/uL (0.8-4.8); LYMPHOCYTES % (AUTO) 35.2 % (20.0-44.0); MEAN CORPUSCULAR HGB CONC 33 g/dl (31.0-36.0); MEAN CORPUSCULAR VOLUME 85 fL (82-100); MONOCYTES # (AUTO) 0.4 K/uL (0.1-1.30); NEUTROPHILS # (AUTO) 3.7 K/uL (1.8-8.9); NEUTROPHILS % (AUTO) 57.1 % (43.0-81.0); PLATELET COUNT (AUTO) 272 K/uL (150-450); RED BLOOD CELL COUNT(AUTO) 4.54 MIL/uL (4.0-5.2); WHITE BLOOD COUNT (AUTO) 6.5 K/uL (4.3-11.0)
[2021-07-28 13:16] LABS: ALBUMIN 3.6 g/dL (3.4-5.0); BILIRUBIN,TOTAL 0.4 mg/dL (0.2-1.0); CALCIUM, SERUM 9.3 mg/dL (8.5-10.1); CREATININE 0.7 mg/dL (0.6-1.3); MAGNESIUM 2.3 mg/dL (1.8-2.4); PHOSPHORUS 3.1 mg/dL (2.5-4.9); TOTAL PROTEIN, SERUM 6.9 g/dL (6.4-8.2)
[2021-07-28 13:35] LABS: FREE T4 (FREE THYROXINE) 0.78 ng/dL (0.76-1.46)
[2021-07-28 13:36] LABS: C-REACTIVE PROTEIN 0.2 mg/dL (0.0-0.9)
== END 2021-07-28 23:59 | disposition home or self-care (01) ==
LOC: MSC 11:35
PROVIDERS: ATTEND Internal Medicine
DX: F32.A Depression, unspecified (principal); Z91.81 History of falling; R51.9 Headache, unspecified; M19.90 Unspecified osteoarthritis, unspecified site; R10.9 Unspecified abdominal pain; E78.5 Hyperlipidemia, unspecified; G47.00 Insomnia, unspecified; F41.9 Anxiety disorder, unspecified; R00.1 Bradycardia, unspecified; R32 Unspecified urinary incontinence; N20.0 Calculus of kidney; M81.0 Age-related osteoporosis without current pathological fracture; F11.20 Opioid dependence, uncomplicated; E04.9 Nontoxic goiter, unspecified; Z79.899 Other long term (current) drug therapy
CPT/HCPCS: 36415; 80053; 80061; 82607; 82746; 83036; 83735; 84100; 84439; 85025; 85652; 86140; G0463

== ENCOUNTER → 2021-08-16 | Outpatient (CLI) | payer MEDICARE, OTHER | END | disposition home or self-care (01) | LOC: MSC 11:10 | PROVIDERS: ATTEND Anesthesiology | DX: M54.16 Radiculopathy, lumbar region (principal); M62.830 Muscle spasm of back; M54.2 Cervicalgia; G89.4 Chronic pain syndrome; F13.20 Sedative, hypnotic or anxiolytic dependence, uncomplicated; M17.0 Bilateral primary osteoarthritis of knee; M19.012 Primary osteoarthritis, left shoulder; M19.011 Primary osteoarthritis, right shoulder; M75.02 Adhesive capsulitis of left shoulder; M75.01 Adhesive capsulitis of right shoulder; M76.32 Iliotibial band syndrome, left leg; M76.31 Iliotibial band syndrome, right leg; G47.00 Insomnia, unspecified; Z76.0 Encounter for issue of repeat prescription ==

== ENCOUNTER 2021-09-13 11:15 | Outpatient (CLI) | payer MEDICARE, OTHER | END 2021-09-13 23:59 | disposition home or self-care (01) | LOC: MSC 11:15 | PROVIDERS: ATTEND Anesthesiology | DX: G89.4 Chronic pain syndrome (principal); M54.16 Radiculopathy, lumbar region; M62.830 Muscle spasm of back; M54.2 Cervicalgia; M19.012 Primary osteoarthritis, left shoulder; M19.011 Primary osteoarthritis, right shoulder; M75.02 Adhesive capsulitis of left shoulder; M75.01 Adhesive capsulitis of right shoulder; M17.0 Bilateral primary osteoarthritis of knee; M76.32 Iliotibial band syndrome, left leg; M76.31 Iliotibial band syndrome, right leg; F13.20 Sedative, hypnotic or anxiolytic dependence, uncomplicated; G47.00 Insomnia, unspecified; Z76.0 Encounter for issue of repeat prescription ==

== ENCOUNTER → 2021-09-22 | Outpatient (CLI) | payer MEDICARE, OTHER | END | disposition home or self-care (01) | LOC: MSC 14:30 | PROVIDERS: ATTEND Internal Medicine | DX: F32.9 Major depressive disorder, single episode, unspecified (principal); R51.9 Headache, unspecified; Z91.81 History of falling; M19.90 Unspecified osteoarthritis, unspecified site; R10.9 Unspecified abdominal pain; E78.5 Hyperlipidemia, unspecified; G47.00 Insomnia, unspecified; F41.9 Anxiety disorder, unspecified; R00.1 Bradycardia, unspecified; R32 Unspecified urinary incontinence; N20.0 Calculus of kidney; M81.0 Age-related osteoporosis without current pathological fracture; F11.20 Opioid dependence, uncomplicated; E04.9 Nontoxic goiter, unspecified; Z79.899 Other long term (current) drug therapy ==

== ENCOUNTER → 2021-09-29 | Outpatient (CLI) | payer MEDICARE, OTHER | END | disposition home or self-care (01) | LOC: MSC 11:32 | PROVIDERS: ATTEND Internal Medicine | DX: R07.81 Pleurodynia (principal); F32.A Depression, unspecified; Z91.81 History of falling; S09.90XD Unspecified injury of head, subsequent encounter; R51.9 Headache, unspecified; M19.90 Unspecified osteoarthritis, unspecified site; R10.9 Unspecified abdominal pain; Z87.19 Personal history of other diseases of the digestive system; E78.5 Hyperlipidemia, unspecified; G47.00 Insomnia, unspecified; F41.9 Anxiety disorder, unspecified; R00.1 Bradycardia, unspecified; R32 Unspecified urinary incontinence; N20.0 Calculus of kidney; M81.0 Age-related osteoporosis without current pathological fracture; F11.20 Opioid dependence, uncomplicated; E04.9 Nontoxic goiter, unspecified; Z79.899 Other long term (current) drug therapy | CPT/HCPCS: 71100; G0463 ==

== ENCOUNTER 2021-10-06 11:20 | Outpatient (CLI) | payer MEDICARE, OTHER | END 2021-10-06 23:59 | disposition home or self-care (01) | LOC: US 11:20 | PROVIDERS: ATTEND Internal Medicine | DX: K76.89 Other specified diseases of liver (principal); N20.0 Calculus of kidney | CPT/HCPCS: 76770-TC ==

== ENCOUNTER 2021-10-13 09:30 | Outpatient (CLI) | payer MEDICARE, OTHER | END 2021-10-13 23:59 | disposition home or self-care (01) | LOC: MSC 09:30 | PROVIDERS: ATTEND Internal Medicine | DX: N20.0 Calculus of kidney (principal); R07.81 Pleurodynia; F32.A Depression, unspecified; Z91.81 History of falling; S09.90XD Unspecified injury of head, subsequent encounter; R51.9 Headache, unspecified; M19.90 Unspecified osteoarthritis, unspecified site; R10.9 Unspecified abdominal pain; Z87.19 Personal history of other diseases of the digestive system; E78.5 Hyperlipidemia, unspecified; G47.00 Insomnia, unspecified; F41.9 Anxiety disorder, unspecified; R00.1 Bradycardia, unspecified; R32 Unspecified urinary incontinence; M81.0 Age-related osteoporosis without current pathological fracture; F11.20 Opioid dependence, uncomplicated; E04.9 Nontoxic goiter, unspecified; Z79.899 Other long term (current) drug therapy ==

== ENCOUNTER 2021-10-20 10:15 | Outpatient (CLI) | payer MEDICARE, OTHER ==
[2021-10-20 11:56] LABS: ALANINE AMINOTRANSFERASE 31 U/L (12-78); ALBUMIN 3.9 g/dL (3.4-5.0); ALKALINE PHOSPHATASE 62 U/L (46-116); ASPARTATE AMINOTRANSFERASE 29 U/L (15-37); BILIRUBIN,TOTAL 0.3 mg/dL (0.2-1.0); CARBON DIOXIDE 25 mmol/L (21-32); CHLORIDE 105 mmol/L (98-107); CREATININE 0.6 mg/dL (0.6-1.3); GLUCOSE 102 mg/dL (74-106); POTASSIUM 4.4 mmol/L (3.5-5.1); SODIUM SERUM 138 mmol/L (136-145); TOTAL PROTEIN, SERUM 7.2 g/dL (6.4-8.2); UREA NITROGEN, BLOOD 18 mg/dL (7-18)
[2021-10-20 15:38] LABS: CHOLESTEROL 188 mg/dL (<200); CREATINE KINASE, TOTAL 176 U/L (26-192); HDL CHOLESTEROL 68 mg/dL (40-60); LDL 100 mg/dL (0-99); TRIGLYCERIDES 110 mg/dL (30-150)
[2021-10-20 15:53] LABS: C-REACTIVE PROTEIN < 0.2 mg/dL (0.0-0.9)
== END 2021-10-20 23:59 | disposition home or self-care (01) ==
LOC: MSC 10:15
PROVIDERS: ATTEND Internal Medicine
DX: Z51.89 Encounter for other specified aftercare (principal); R07.81 Pleurodynia; N20.0 Calculus of kidney; F32.A Depression, unspecified; S09.90XD Unspecified injury of head, subsequent encounter; Z91.81 History of falling; R51.9 Headache, unspecified; M19.90 Unspecified osteoarthritis, unspecified site; R10.9 Unspecified abdominal pain; Z87.19 Personal history of other diseases of the digestive system; E78.5 Hyperlipidemia, unspecified; G47.00 Insomnia, unspecified; F41.9 Anxiety disorder, unspecified; R00.1 Bradycardia, unspecified; R32 Unspecified urinary incontinence; M81.0 Age-related osteoporosis without current pathological fracture; F11.20 Opioid dependence, uncomplicated; E04.9 Nontoxic goiter, unspecified; Z79.899 Other long term (current) drug therapy
CPT/HCPCS: 36415; 80053; 80061; 82550; 85652; 86140; G0463

== ENCOUNTER → 2021-10-25 | Outpatient (CLI) | payer MEDICARE, OTHER | END | disposition home or self-care (01) | LOC: MSC 11:30 | PROVIDERS: ATTEND Anesthesiology | DX: G89.4 Chronic pain syndrome (principal); M54.16 Radiculopathy, lumbar region; M62.830 Muscle spasm of back; F13.20 Sedative, hypnotic or anxiolytic dependence, uncomplicated; M17.0 Bilateral primary osteoarthritis of knee; M19.012 Primary osteoarthritis, left shoulder; M19.011 Primary osteoarthritis, right shoulder; M75.02 Adhesive capsulitis of left shoulder; M75.01 Adhesive capsulitis of right shoulder; M76.32 Iliotibial band syndrome, left leg; M76.31 Iliotibial band syndrome, right leg; G47.00 Insomnia, unspecified ==

== ENCOUNTER 2021-11-08 11:27 | Outpatient (CLI) | payer MEDICARE, OTHER | END 2021-11-08 23:59 | disposition home or self-care (01) | LOC: MSC 11:27 | PROVIDERS: ATTEND Internal Medicine | DX: R07.81 Pleurodynia (principal); N20.0 Calculus of kidney; F32.9 Major depressive disorder, single episode, unspecified; S09.90XD Unspecified injury of head, subsequent encounter; Z91.81 History of falling; R51.9 Headache, unspecified; M19.90 Unspecified osteoarthritis, unspecified site; R10.9 Unspecified abdominal pain; Z87.19 Personal history of other diseases of the digestive system; E78.5 Hyperlipidemia, unspecified; G47.00 Insomnia, unspecified; F41.9 Anxiety disorder, unspecified; R00.1 Bradycardia, unspecified; R32 Unspecified urinary incontinence; M81.0 Age-related osteoporosis without current pathological fracture; E04.9 Nontoxic goiter, unspecified; F11.20 Opioid dependence, uncomplicated; Z79.899 Other long term (current) drug therapy ==

== ENCOUNTER → 2021-11-15 | Outpatient (CLI) | payer MEDICARE, OTHER | END | disposition home or self-care (01) | LOC: MSC 09:45 | PROVIDERS: ATTEND Internal Medicine | DX: R07.82 Intercostal pain (principal); N20.0 Calculus of kidney; F32.9 Major depressive disorder, single episode, unspecified; S09.90XD Unspecified injury of head, subsequent encounter; Z91.81 History of falling; R51.9 Headache, unspecified; M19.90 Unspecified osteoarthritis, unspecified site; R10.9 Unspecified abdominal pain; Z87.19 Personal history of other diseases of the digestive system; E78.5 Hyperlipidemia, unspecified; G47.00 Insomnia, unspecified; F41.9 Anxiety disorder, unspecified; R00.1 Bradycardia, unspecified; R32 Unspecified urinary incontinence; M81.0 Age-related osteoporosis without current pathological fracture; E04.9 Nontoxic goiter, unspecified; F11.20 Opioid dependence, uncomplicated; Z79.899 Other long term (current) drug therapy ==

== ENCOUNTER 2021-11-17 11:02 | Outpatient (CLI) | payer MEDICARE, OTHER | END 2021-11-17 23:59 | disposition home or self-care (01) | LOC: RAD 11:02 | PROVIDERS: ATTEND Internal Medicine | DX: R07.81 Pleurodynia (principal); R10.9 Unspecified abdominal pain | CPT/HCPCS: 71100-TC ==

== ENCOUNTER → 2021-11-18 | Outpatient (CLI) | payer MEDICARE, OTHER | END | disposition home or self-care (01) | LOC: MSC 13:00 | PROVIDERS: ATTEND Internal Medicine | DX: R07.82 Intercostal pain (principal); N20.0 Calculus of kidney; F32.9 Major depressive disorder, single episode, unspecified; S09.90XD Unspecified injury of head, subsequent encounter; Z91.81 History of falling; R51.9 Headache, unspecified; M19.90 Unspecified osteoarthritis, unspecified site; R10.9 Unspecified abdominal pain; Z87.19 Personal history of other diseases of the digestive system; E78.5 Hyperlipidemia, unspecified; G47.00 Insomnia, unspecified; F41.9 Anxiety disorder, unspecified; R00.1 Bradycardia, unspecified; R32 Unspecified urinary incontinence; M81.0 Age-related osteoporosis without current pathological fracture; E04.9 Nontoxic goiter, unspecified; F11.20 Opioid dependence, uncomplicated; Z79.899 Other long term (current) drug therapy ==

== ENCOUNTER → 2021-11-29 | Outpatient (CLI) | payer MEDICARE, OTHER | END | disposition home or self-care (01) | LOC: MSC 14:30 | PROVIDERS: ATTEND Internal Medicine | DX: I10 Essential (primary) hypertension (principal); R07.82 Intercostal pain; N20.0 Calculus of kidney; F32.A Depression, unspecified; S09.90XD Unspecified injury of head, subsequent encounter; Z91.81 History of falling; R51.9 Headache, unspecified; M19.90 Unspecified osteoarthritis, unspecified site; R10.9 Unspecified abdominal pain; Z87.19 Personal history of other diseases of the digestive system; E78.5 Hyperlipidemia, unspecified; G47.00 Insomnia, unspecified; F41.9 Anxiety disorder, unspecified; R00.1 Bradycardia, unspecified; R32 Unspecified urinary incontinence; M81.0 Age-related osteoporosis without current pathological fracture; E04.9 Nontoxic goiter, unspecified; F11.20 Opioid dependence, uncomplicated; Z79.899 Other long term (current) drug therapy ==

== ENCOUNTER 2021-12-08 11:28 | Outpatient (CLI) | payer MEDICARE, OTHER | END 2021-12-08 23:59 | disposition home or self-care (01) | LOC: MSC 11:28 | PROVIDERS: ATTEND Internal Medicine | DX: I10 Essential (primary) hypertension (principal); R07.82 Intercostal pain; N20.0 Calculus of kidney; F32.A Depression, unspecified; Z91.81 History of falling; R51.9 Headache, unspecified; M19.90 Unspecified osteoarthritis, unspecified site; R10.9 Unspecified abdominal pain; Z87.19 Personal history of other diseases of the digestive system; E78.5 Hyperlipidemia, unspecified; G47.00 Insomnia, unspecified; F41.9 Anxiety disorder, unspecified; R00.1 Bradycardia, unspecified; R32 Unspecified urinary incontinence; M81.0 Age-related osteoporosis without current pathological fracture; E04.9 Nontoxic goiter, unspecified; F11.20 Opioid dependence, uncomplicated; Z79.899 Other long term (current) drug therapy ==

== ENCOUNTER 2021-12-20 11:58 | Outpatient (CLI) | payer MEDICARE, OTHER ==
--- NOTE | 2021-12-20 12:17 | NUR ---
pt.came to [facility] at 1217 for Prolia shot. BP 115/65, HR 67. the Subq injection of Prolia (lot [id number], exp: 04/01/2024) is given to right mid lateral side of the abdomen. Patient tolerated procedure well.
== END 2021-12-20 23:59 | disposition home or self-care (01) ==
LOC: MSC 11:58
PROVIDERS: ATTEND Internal Medicine
DX: M81.0 Age-related osteoporosis without current pathological fracture (principal)
CPT/HCPCS: 96372; J0897

== ENCOUNTER → 2022-02-02 | Outpatient (CLI) | payer MEDICARE, OTHER ==
[~2022-02-02] MED LIST changes: +NAPR-1009 PO
== END | disposition home or self-care (01) ==
LOC: MSC 15:00
PROVIDERS: ATTEND Internal Medicine
DX: J06.9 Acute upper respiratory infection, unspecified (principal); I10 Essential (primary) hypertension; R07.82 Intercostal pain; N20.0 Calculus of kidney; F32.A Depression, unspecified; Z91.81 History of falling; R51.9 Headache, unspecified; M19.90 Unspecified osteoarthritis, unspecified site; R10.9 Unspecified abdominal pain; Z87.19 Personal history of other diseases of the digestive system; E78.5 Hyperlipidemia, unspecified; G47.00 Insomnia, unspecified; F41.9 Anxiety disorder, unspecified; R00.1 Bradycardia, unspecified; R32 Unspecified urinary incontinence; M81.0 Age-related osteoporosis without current pathological fracture; E04.9 Nontoxic goiter, unspecified; F11.20 Opioid dependence, uncomplicated; Z79.899 Other long term (current) drug therapy

== ENCOUNTER 2022-02-05 10:45 | Emergency (ER) | payer MEDICARE, OTHER ==
[~2022-02-05] VITALS: Ht 152.4 cm; Wt 54.4 kg
[~2022-02-05 10:45] MED LIST changes: -NAPR-1009 PO
--- NOTE | 2022-02-05 10:51 | NUR ---
BIBS FOR C/O RIGHT WRIST PAIN 12/09 X1 WEEK. HX OA. DENIES TRAUMA. RADIAL PULSE PRESENT. WILL CONTINUE TO MONITOR THE PATIENT.
[2022-02-05] MEDS ORDERED: IBUPROFEN 600 MG TABLET ONE (11:28)
[2022-02-05] MEDS ORDERED: ACETAMINOPHEN 325 MG TABLET ONE (11:28)
[2022-02-05] MEDS ORDERED: ACETAMINOPHEN 325 MG TABLET PO ONE (11:30)
[2022-02-05] MEDS ORDERED: IBUPROFEN 600 MG TABLET PO ONE (11:30)
[2022-02-05] MEDS ORDERED: NAPR-1009 PO (12:26)
--- NOTE | 2022-02-05 12:30 | NUR ---
Patient discharged to home in stable condition. Written and verbal after care instructions given. Patient verbalizes understanding of instruction.
[2022-02-05 12:32] VITALS: BP 122/60
== END 2022-02-05 12:33 | disposition home or self-care (01) ==
LOC: ER 10:49
DX: M25.531 Pain in right wrist (principal); E78.5 Hyperlipidemia, unspecified; K21.9 Gastro-esophageal reflux disease without esophagitis; M19.90 Unspecified osteoarthritis, unspecified site; Z98.890 Other specified postprocedural states; Z88.0 Allergy status to penicillin; Z79.899 Other long term (current) drug therapy
CPT/HCPCS: 73110

== ENCOUNTER 2022-02-07 11:00 | Outpatient (CLI) | payer MEDICARE, OTHER ==
[~2022-02-07 11:00] MED LIST changes: +NAPR-1009 PO
== END 2022-02-07 23:59 | disposition home or self-care (01) ==
LOC: MSC 11:00
PROVIDERS: ATTEND Anesthesiology
DX: G89.4 Chronic pain syndrome (principal); M54.16 Radiculopathy, lumbar region; M62.830 Muscle spasm of back; G47.00 Insomnia, unspecified; F13.20 Sedative, hypnotic or anxiolytic dependence, uncomplicated; M79.669 Pain in unspecified lower leg; M17.0 Bilateral primary osteoarthritis of knee; M19.012 Primary osteoarthritis, left shoulder; M19.011 Primary osteoarthritis, right shoulder; M75.02 Adhesive capsulitis of left shoulder; M75.01 Adhesive capsulitis of right shoulder; M76.32 Iliotibial band syndrome, left leg; M76.31 Iliotibial band syndrome, right leg

== ENCOUNTER 2022-02-14 10:28 | Outpatient (CLI) | payer MEDICARE, OTHER ==
[2022-02-14 11:53] LABS: ALANINE AMINOTRANSFERASE 29 U/L (12-78); ALBUMIN 3.5 g/dL (3.4-5.0); ALKALINE PHOSPHATASE 73 U/L (46-116); ASPARTATE AMINOTRANSFERASE 22 U/L (15-37); BILIRUBIN,TOTAL 0.3 mg/dL (0.2-1.0); CALCIUM, SERUM 8.4 mg/dL (8.5-10.1); CARBON DIOXIDE 31 mmol/L (21-32); CHLORIDE 107 mmol/L (98-107); CREATININE 0.7 mg/dL (0.6-1.3); GLUCOSE 123 mg/dL (74-106); POTASSIUM 3.9 mmol/L (3.5-5.1); SODIUM SERUM 142 mmol/L (136-145); TOTAL PROTEIN, SERUM 6.9 g/dL (6.4-8.2); UREA NITROGEN, BLOOD 15 mg/dL (7-18)
[2022-02-14 11:55] LABS: CHOLESTEROL 151 mg/dL (<200); CREATINE KINASE, TOTAL 76 U/L (26-192); HDL CHOLESTEROL 61 mg/dL (40-60); LDL 67 mg/dL (0-99); TRIGLYCERIDES 129 mg/dL (30-150)
== END 2022-02-14 23:59 | disposition home or self-care (01) ==
LOC: MSC 10:28
PROVIDERS: ATTEND Internal Medicine
DX: S60.211D Contusion of right wrist, subsequent encounter (principal); M54.9 Dorsalgia, unspecified; Z86.16 Personal history of COVID-19; I10 Essential (primary) hypertension; R07.82 Intercostal pain; N20.0 Calculus of kidney; F32.A Depression, unspecified; Z91.81 History of falling; R51.9 Headache, unspecified; M19.90 Unspecified osteoarthritis, unspecified site; R10.9 Unspecified abdominal pain; Z87.19 Personal history of other diseases of the digestive system; E78.5 Hyperlipidemia, unspecified; G47.00 Insomnia, unspecified; F41.9 Anxiety disorder, unspecified; R00.1 Bradycardia, unspecified; R32 Unspecified urinary incontinence; M81.0 Age-related osteoporosis without current pathological fracture; E04.9 Nontoxic goiter, unspecified; F11.20 Opioid dependence, uncomplicated; Z79.899 Other long term (current) drug therapy
CPT/HCPCS: 80061; 82550; 36415; 80053; G0463

== ENCOUNTER 2022-02-27 09:39 | Emergency (ER) | payer MEDICARE, OTHER ==
[~2022-02-27] VITALS: Ht 147.3 cm; Wt 57.6 kg
--- NOTE | 2022-02-27 09:49 | NUR ---
AAOX3, came to ER c/o left rib cage pain s/p fall x 3 days ago. Resp is even and unlabored with no apparent distress noted. Awaiting MD for eval.
--- NOTE | 2022-02-27 09:51 | NUR ---
Dr Steele at for eval.
--- NOTE | 2022-02-27 09:57 | NUR ---
FULLY AWAKE AND ALERT NO SOB
[2022-02-27] MEDS ORDERED: ACETAMINOPHEN ES 500 MG TABLET ONE (09:59)
[2022-02-27] MEDS ORDERED: ACETAMINOPHEN ES 500 MG TABLET PO ONE (10:00)
[2022-02-27] MEDS ORDERED: IBUP-1957 PO (10:39)
[2022-02-27] MEDS ORDERED: HYDR-3980 PO (10:39)
--- NOTE | 2022-02-27 11:00 | NUR ---
Patient discharged to home in stable condition. Written and verbal after care instructions given. Patient verbalizes understanding of instruction.
[2022-02-27 11:13] VITALS: BP 105/48
== END 2022-02-27 11:14 | disposition home or self-care (01) ==
LOC: ER 09:45
DX: S22.32XA Fracture of one rib, left side, initial encounter for closed fracture (principal); E78.5 Hyperlipidemia, unspecified; K21.9 Gastro-esophageal reflux disease without esophagitis; M19.90 Unspecified osteoarthritis, unspecified site; Z98.890 Other specified postprocedural states; Z88.0 Allergy status to penicillin; Z79.899 Other long term (current) drug therapy; W20.8XXA Other cause of strike by thrown, projected or falling object, initial encounter; Y93.89 Activity, other specified; Y92.090 Kitchen in other non-institutional residence as the place of occurrence of the external cause; Y99.8 Other external cause status
CPT/HCPCS: 71100-TC

== ENCOUNTER 2022-02-28 11:41 | Outpatient (CLI) | payer MEDICARE, OTHER ==
[~2022-02-28 11:41] MED LIST changes: +HYDR-3980 PO; +IBUP-1957 PO
== END 2022-02-28 23:59 | disposition home or self-care (01) ==
LOC: MSC 11:41
PROVIDERS: ATTEND Internal Medicine
DX: S22.32XD Fracture of one rib, left side, subsequent encounter for fracture with routine healing (principal); S60.211D Contusion of right wrist, subsequent encounter; I10 Essential (primary) hypertension; R07.82 Intercostal pain; Z86.16 Personal history of COVID-19; N20.0 Calculus of kidney; F32.A Depression, unspecified; R51.9 Headache, unspecified; Z91.81 History of falling; M19.90 Unspecified osteoarthritis, unspecified site; R10.9 Unspecified abdominal pain; Z87.19 Personal history of other diseases of the digestive system; E78.5 Hyperlipidemia, unspecified; G47.00 Insomnia, unspecified; F41.9 Anxiety disorder, unspecified; R00.1 Bradycardia, unspecified; R32 Unspecified urinary incontinence; M81.0 Age-related osteoporosis without current pathological fracture; E04.9 Nontoxic goiter, unspecified; F11.20 Opioid dependence, uncomplicated; Z79.899 Other long term (current) drug therapy

== ENCOUNTER → 2022-03-07 | Outpatient (CLI) | payer MEDICARE, OTHER | END | disposition home or self-care (01) | LOC: MSC 14:30 | PROVIDERS: ATTEND Internal Medicine | DX: R60.0 Localized edema (principal); I10 Essential (primary) hypertension; S22.32XD Fracture of one rib, left side, subsequent encounter for fracture with routine healing; S60.211D Contusion of right wrist, subsequent encounter; R07.82 Intercostal pain; Z86.16 Personal history of COVID-19; F32.A Depression, unspecified; R51.9 Headache, unspecified; Z91.81 History of falling; M19.90 Unspecified osteoarthritis, unspecified site; R10.9 Unspecified abdominal pain; Z87.19 Personal history of other diseases of the digestive system; E78.5 Hyperlipidemia, unspecified; G47.00 Insomnia, unspecified; F41.9 Anxiety disorder, unspecified; R00.1 Bradycardia, unspecified; R32 Unspecified urinary incontinence; M81.0 Age-related osteoporosis without current pathological fracture; E04.9 Nontoxic goiter, unspecified; N20.0 Calculus of kidney; F11.20 Opioid dependence, uncomplicated; Z79.899 Other long term (current) drug therapy ==

== ENCOUNTER → 2022-03-14 | Outpatient (CLI) | payer MEDICARE, OTHER | END | disposition home or self-care (01) | LOC: MSC 11:00 | PROVIDERS: ATTEND Anesthesiology | DX: M54.16 Radiculopathy, lumbar region (principal); M62.830 Muscle spasm of back; G89.4 Chronic pain syndrome; R07.81 Pleurodynia; G47.00 Insomnia, unspecified; M17.0 Bilateral primary osteoarthritis of knee; M19.012 Primary osteoarthritis, left shoulder; M19.011 Primary osteoarthritis, right shoulder; M75.02 Adhesive capsulitis of left shoulder; M75.01 Adhesive capsulitis of right shoulder; M76.32 Iliotibial band syndrome, left leg; M76.31 Iliotibial band syndrome, right leg; F13.20 Sedative, hypnotic or anxiolytic dependence, uncomplicated; Z79.1 Long term (current) use of non-steroidal anti-inflammatories (NSAID) ==

== ENCOUNTER 2022-04-04 10:19 | Outpatient (CLI) | payer MEDICARE, OTHER | END 2022-04-04 23:59 | disposition home or self-care (01) | LOC: MSC 10:19 | PROVIDERS: ATTEND Internal Medicine | DX: R10.9 Unspecified abdominal pain (principal); Z87.19 Personal history of other diseases of the digestive system; Z98.890 Other specified postprocedural states; M16.6 Other bilateral secondary osteoarthritis of hip; I10 Essential (primary) hypertension; S22.32XD Fracture of one rib, left side, subsequent encounter for fracture with routine healing; R07.82 Intercostal pain; S60.211D Contusion of right wrist, subsequent encounter; Z86.16 Personal history of COVID-19; N20.0 Calculus of kidney; F32.A Depression, unspecified; R51.9 Headache, unspecified; Z91.81 History of falling; M19.90 Unspecified osteoarthritis, unspecified site; E78.5 Hyperlipidemia, unspecified; G47.00 Insomnia, unspecified; F41.9 Anxiety disorder, unspecified; R00.1 Bradycardia, unspecified; R32 Unspecified urinary incontinence; M81.0 Age-related osteoporosis without current pathological fracture; E04.9 Nontoxic goiter, unspecified; F11.20 Opioid dependence, uncomplicated; Z79.899 Other long term (current) drug therapy ==

== ENCOUNTER 2022-04-11 09:58 | Outpatient (CLI) | payer MEDICARE, OTHER | END 2022-04-11 23:59 | disposition home or self-care (01) | LOC: CT 09:58 | PROVIDERS: ATTEND Internal Medicine | DX: S22.42XA Multiple fractures of ribs, left side, initial encounter for closed fracture (principal); D73.89 Other diseases of spleen; N20.0 Calculus of kidney; R91.1 Solitary pulmonary nodule; I25.10 Atherosclerotic heart disease of native coronary artery without angina pectoris; J84.10 Pulmonary fibrosis, unspecified; K76.89 Other specified diseases of liver; N85.8 Other specified noninflammatory disorders of uterus; K57.30 Diverticulosis of large intestine without perforation or abscess without bleeding; M51.26 Other intervertebral disc displacement, lumbar region; M43.16 Spondylolisthesis, lumbar region; K46.9 Unspecified abdominal hernia without obstruction or gangrene; M89.8X8 Other specified disorders of bone, other site; Z90.49 Acquired absence of other specified parts of digestive tract; X58.XXXA Exposure to other specified factors, initial encounter; Y93.89 Activity, other specified; Y92.89 Other specified places as the place of occurrence of the external cause; Y99.8 Other external cause status | CPT/HCPCS: 74150-TC ==

== ENCOUNTER 2022-04-11 10:35 | Outpatient (CLI) | payer MEDICARE, OTHER | END 2022-04-11 23:59 | disposition home or self-care (01) | LOC: MSC 10:35 | PROVIDERS: ATTEND Anesthesiology | DX: G89.4 Chronic pain syndrome (principal); M54.16 Radiculopathy, lumbar region; M62.830 Muscle spasm of back; M19.012 Primary osteoarthritis, left shoulder; M19.011 Primary osteoarthritis, right shoulder; M75.02 Adhesive capsulitis of left shoulder; M75.01 Adhesive capsulitis of right shoulder; M17.0 Bilateral primary osteoarthritis of knee; M79.669 Pain in unspecified lower leg; Z76.0 Encounter for issue of repeat prescription; F13.20 Sedative, hypnotic or anxiolytic dependence, uncomplicated; G47.00 Insomnia, unspecified; M76.31 Iliotibial band syndrome, right leg; M76.32 Iliotibial band syndrome, left leg; Z79.899 Other long term (current) drug therapy ==

== ENCOUNTER 2022-04-18 09:30 | Outpatient (CLI) | payer MEDICARE, OTHER | END 2022-04-18 23:59 | disposition home or self-care (01) | LOC: MSC 09:30 | PROVIDERS: ATTEND Internal Medicine | DX: R91.1 Solitary pulmonary nodule (principal); K86.89 Other specified diseases of pancreas; R10.9 Unspecified abdominal pain; Z87.19 Personal history of other diseases of the digestive system; Z98.890 Other specified postprocedural states; N20.0 Calculus of kidney; I10 Essential (primary) hypertension; M16.6 Other bilateral secondary osteoarthritis of hip; S22.32XD Fracture of one rib, left side, subsequent encounter for fracture with routine healing; Z91.81 History of falling; R07.82 Intercostal pain; S60.211D Contusion of right wrist, subsequent encounter; Z86.16 Personal history of COVID-19; F32.A Depression, unspecified; R51.9 Headache, unspecified; M19.90 Unspecified osteoarthritis, unspecified site; E78.5 Hyperlipidemia, unspecified; G47.00 Insomnia, unspecified; F41.9 Anxiety disorder, unspecified; R00.1 Bradycardia, unspecified; R32 Unspecified urinary incontinence; M81.0 Age-related osteoporosis without current pathological fracture; E04.9 Nontoxic goiter, unspecified; F11.20 Opioid dependence, uncomplicated; Z79.899 Other long term (current) drug therapy ==

== ENCOUNTER 2022-04-20 10:11 | Outpatient (CLI) | payer MEDICARE, OTHER ==
[2022-04-20 11:54] LABS: CALCIUM, SERUM 8.7 mg/dL (8.5-10.1); CREATININE 0.6 mg/dL (0.6-1.3); POTASSIUM 3.7 mmol/L (3.5-5.1)
== END 2022-04-20 23:59 | disposition home or self-care (01) ==
LOC: LAB 10:11
PROVIDERS: ATTEND Internal Medicine
DX: R91.1 Solitary pulmonary nodule (principal)
CPT/HCPCS: 36415; 80048-TC

== ENCOUNTER 2022-04-24 11:10 | Outpatient (CLI) | payer MEDICARE, OTHER ==
[2022-04-24] MEDS ORDERED: IOHEXOL-300 100 ML VIAL IV ONE (11:17)
[2022-04-24] MEDS ORDERED: IV NS 0.9% 250 ML IV ONE (11:17)
[2022-04-24] MEDS ORDERED: CT SWABBABLE VALVE TRANS SET 1 EA INFUS.SET MC ONE (11:17)
== END 2022-04-24 23:59 | disposition home or self-care (01) ==
LOC: CT 11:10
PROVIDERS: ATTEND Internal Medicine
DX: S22.42XA Multiple fractures of ribs, left side, initial encounter for closed fracture (principal); E04.2 Nontoxic multinodular goiter; R91.1 Solitary pulmonary nodule; K86.2 Cyst of pancreas; N20.0 Calculus of kidney; K57.30 Diverticulosis of large intestine without perforation or abscess without bleeding; N83.292 Other ovarian cyst, left side; N85.4 Malposition of uterus; N85.8 Other specified noninflammatory disorders of uterus; K76.89 Other specified diseases of liver; I70.0 Atherosclerosis of aorta; K86.9 Disease of pancreas, unspecified; M89.8X8 Other specified disorders of bone, other site; M51.36 Other intervertebral disc degeneration, lumbar region; Z90.49 Acquired absence of other specified parts of digestive tract; X58.XXXA Exposure to other specified factors, initial encounter; Y93.89 Activity, other specified; Y92.89 Other specified places as the place of occurrence of the external cause; Y99.8 Other external cause status
CPT/HCPCS: 71270; 74178; J7050; Q9967

== ENCOUNTER → 2022-04-26 | Outpatient (CLI) | payer MEDICARE, OTHER | END | disposition home or self-care (01) | LOC: MSC 14:30 | PROVIDERS: ATTEND Internal Medicine | DX: R91.1 Solitary pulmonary nodule (principal); K86.89 Other specified diseases of pancreas; S22.32XD Fracture of one rib, left side, subsequent encounter for fracture with routine healing; R10.9 Unspecified abdominal pain; Z87.19 Personal history of other diseases of the digestive system; Z98.890 Other specified postprocedural states; N20.0 Calculus of kidney; I10 Essential (primary) hypertension; M16.6 Other bilateral secondary osteoarthritis of hip; Z91.81 History of falling; R07.82 Intercostal pain; S60.211D Contusion of right wrist, subsequent encounter; Z86.16 Personal history of COVID-19; F32.A Depression, unspecified; R51.9 Headache, unspecified; M19.90 Unspecified osteoarthritis, unspecified site; E78.5 Hyperlipidemia, unspecified; G47.00 Insomnia, unspecified; F41.9 Anxiety disorder, unspecified; R00.1 Bradycardia, unspecified; R32 Unspecified urinary incontinence; M81.0 Age-related osteoporosis without current pathological fracture; E04.9 Nontoxic goiter, unspecified; F11.20 Opioid dependence, uncomplicated; Z79.899 Other long term (current) drug therapy ==

== ENCOUNTER 2022-05-16 11:02 | Outpatient (CLI) | payer MEDICARE, OTHER | END 2022-05-16 23:59 | disposition home or self-care (01) | LOC: MSC 11:02 | PROVIDERS: ATTEND Anesthesiology | DX: G89.4 Chronic pain syndrome (principal); M54.16 Radiculopathy, lumbar region; M62.830 Muscle spasm of back; M19.012 Primary osteoarthritis, left shoulder; M19.011 Primary osteoarthritis, right shoulder; M75.02 Adhesive capsulitis of left shoulder; M75.01 Adhesive capsulitis of right shoulder; M17.0 Bilateral primary osteoarthritis of knee; M79.669 Pain in unspecified lower leg; Z76.0 Encounter for issue of repeat prescription; F13.20 Sedative, hypnotic or anxiolytic dependence, uncomplicated; G47.00 Insomnia, unspecified; M76.31 Iliotibial band syndrome, right leg; M76.32 Iliotibial band syndrome, left leg; Z79.899 Other long term (current) drug therapy ==

== ENCOUNTER 2022-06-13 11:00 | Outpatient (CLI) | payer MEDICARE, OTHER ==
--- NOTE | 2022-06-13 11:30 | NUR ---
1130 prolia 60mg/ml (exp: 07/26/2023)was injected in left upper quad. of the abdomen per dr. Plata order once in 6 months. pt tolerated procedure well. will follow up with dr. Plata.
== END 2022-06-13 23:59 | disposition home or self-care (01) ==
LOC: MSC 11:00
PROVIDERS: ATTEND Internal Medicine
DX: M81.0 Age-related osteoporosis without current pathological fracture (principal)
CPT/HCPCS: J0897 ×2; 96372

== ENCOUNTER 2022-06-13 12:08 | Outpatient (CLI) | payer MEDICARE, OTHER | END 2022-06-13 23:59 | disposition home or self-care (01) | LOC: MSC 12:08 | PROVIDERS: ATTEND Anesthesiology | DX: G89.4 Chronic pain syndrome (principal); M54.16 Radiculopathy, lumbar region; M62.830 Muscle spasm of back; M19.012 Primary osteoarthritis, left shoulder; M19.011 Primary osteoarthritis, right shoulder; M75.02 Adhesive capsulitis of left shoulder; M75.01 Adhesive capsulitis of right shoulder; M17.0 Bilateral primary osteoarthritis of knee; M79.669 Pain in unspecified lower leg; Z76.0 Encounter for issue of repeat prescription; F13.20 Sedative, hypnotic or anxiolytic dependence, uncomplicated; G47.00 Insomnia, unspecified; M76.31 Iliotibial band syndrome, right leg; M76.32 Iliotibial band syndrome, left leg; Z79.899 Other long term (current) drug therapy ==

== ENCOUNTER 2022-07-04 10:00 | Outpatient (CLI) | payer MEDICARE, OTHER | END 2022-07-04 23:59 | disposition home or self-care (01) | LOC: MSC 10:00 | PROVIDERS: ATTEND Anesthesiology | DX: G89.4 Chronic pain syndrome (principal); M54.16 Radiculopathy, lumbar region; M62.830 Muscle spasm of back; G47.00 Insomnia, unspecified; M17.0 Bilateral primary osteoarthritis of knee; M19.012 Primary osteoarthritis, left shoulder; M19.011 Primary osteoarthritis, right shoulder; M75.02 Adhesive capsulitis of left shoulder; M75.01 Adhesive capsulitis of right shoulder; M76.32 Iliotibial band syndrome, left leg; M76.31 Iliotibial band syndrome, right leg; F13.20 Sedative, hypnotic or anxiolytic dependence, uncomplicated ==

== ENCOUNTER → 2022-07-25 | Outpatient (CLI) | payer MEDICARE, OTHER | END | disposition home or self-care (01) | LOC: MSC 10:45 | PROVIDERS: ATTEND Internal Medicine | DX: I10 Essential (primary) hypertension (principal); S22.32XD Fracture of one rib, left side, subsequent encounter for fracture with routine healing; R91.1 Solitary pulmonary nodule; K86.89 Other specified diseases of pancreas; M19.90 Unspecified osteoarthritis, unspecified site; F11.20 Opioid dependence, uncomplicated; M16.6 Other bilateral secondary osteoarthritis of hip; S60.211D Contusion of right wrist, subsequent encounter; N20.0 Calculus of kidney; R07.82 Intercostal pain; F32.9 Major depressive disorder, single episode, unspecified; F41.9 Anxiety disorder, unspecified; R51.9 Headache, unspecified; Z86.16 Personal history of COVID-19; E78.5 Hyperlipidemia, unspecified; G47.00 Insomnia, unspecified; R00.1 Bradycardia, unspecified; R32 Unspecified urinary incontinence; M81.0 Age-related osteoporosis without current pathological fracture; E04.9 Nontoxic goiter, unspecified; Z79.899 Other long term (current) drug therapy ==

== ENCOUNTER → 2022-07-25 | Outpatient (CLI) | payer MEDICARE, OTHER ==
[2022-07-25 12:41] LABS: BASOPHILS % (AUTO) 0.3 % (0.0-2.0); EOSINOPHILS % (AUTO) 1.1 % (0.0-6.0); HEMATOCRIT 41 % (33-45); HEMOGLOBIN 13.2 g/dL (11.5-14.8); LYMPHOCYTES # (AUTO) 2.3 K/uL (0.8-4.8); LYMPHOCYTES % (AUTO) 31.6 % (20.0-44.0); MEAN CORPUSCULAR HGB CONC 32 g/dl (31.0-36.0); MEAN CORPUSCULAR VOLUME 84 fL (82-100); MONOCYTES # (AUTO) 0.5 K/uL (0.1-1.30); MONOCYTES % (AUTO) 6.7 % (2.0-12.0); NEUTROPHILS # (AUTO) 4.3 K/uL (1.8-8.9); NEUTROPHILS % (AUTO) 60.3 % (43.0-81.0); PLATELET COUNT (AUTO) 292 K/uL (150-450); RED BLOOD CELL COUNT(AUTO) 4.88 MIL/uL (4.0-5.2); WHITE BLOOD COUNT (AUTO) 7.2 K/uL (4.3-11.0)
[2022-07-25 12:57] LABS: ALBUMIN 3.8 g/dL (3.4-5.0); BILIRUBIN,TOTAL 0.4 mg/dL (0.2-1.0); CREATININE 0.8 mg/dL (0.6-1.3); POTASSIUM 4.1 mmol/L (3.5-5.1); TOTAL PROTEIN, SERUM 6.8 g/dL (6.4-8.2)
== END | disposition home or self-care (01) ==
LOC: LAB 11:25
DX: Z00.00 Encounter for general adult medical examination without abnormal findings (principal); I10 Essential (primary) hypertension
CPT/HCPCS: 36415; 80053-TC; 80061-TC; 82550-TC; 85025-TC

== ENCOUNTER 2022-09-12 10:31 | Outpatient (CLI) | payer MEDICARE, OTHER | END 2022-09-12 23:59 | disposition home or self-care (01) | LOC: MSC 10:31 | PROVIDERS: ATTEND Anesthesiology | DX: H92.02 Otalgia, left ear (principal); M26.622 Arthralgia of left temporomandibular joint; G89.4 Chronic pain syndrome; M54.16 Radiculopathy, lumbar region; M62.830 Muscle spasm of back; M19.012 Primary osteoarthritis, left shoulder; M19.011 Primary osteoarthritis, right shoulder; M75.02 Adhesive capsulitis of left shoulder; M75.01 Adhesive capsulitis of right shoulder; M17.0 Bilateral primary osteoarthritis of knee; M79.669 Pain in unspecified lower leg; Z76.0 Encounter for issue of repeat prescription; F13.20 Sedative, hypnotic or anxiolytic dependence, uncomplicated; M76.31 Iliotibial band syndrome, right leg; M76.32 Iliotibial band syndrome, left leg; G47.00 Insomnia, unspecified; Z79.899 Other long term (current) drug therapy ==

== ENCOUNTER 2022-09-12 10:34 | Outpatient (CLI) | payer MEDICARE, OTHER | END 2022-09-12 23:59 | disposition home or self-care (01) | LOC: MSC 10:34 | PROVIDERS: ATTEND Internal Medicine | DX: M54.2 Cervicalgia (principal); R51.9 Headache, unspecified; I10 Essential (primary) hypertension; S22.32XD Fracture of one rib, left side, subsequent encounter for fracture with routine healing; R91.1 Solitary pulmonary nodule; K86.89 Other specified diseases of pancreas; F11.20 Opioid dependence, uncomplicated; M16.6 Other bilateral secondary osteoarthritis of hip; N20.0 Calculus of kidney; S60.211D Contusion of right wrist, subsequent encounter; R07.82 Intercostal pain; F32.9 Major depressive disorder, single episode, unspecified; F41.9 Anxiety disorder, unspecified; R10.9 Unspecified abdominal pain; E78.5 Hyperlipidemia, unspecified; G47.00 Insomnia, unspecified; R00.1 Bradycardia, unspecified; R32 Unspecified urinary incontinence; M81.0 Age-related osteoporosis without current pathological fracture; Z86.16 Personal history of COVID-19; E04.9 Nontoxic goiter, unspecified; Z79.899 Other long term (current) drug therapy ==